=== PATIENT | male | born 1980 | race Caucasian/White ===

== ENCOUNTER 2017-01-31 16:55 | Emergency (ER) | payer OTHER ==
[2017-01-31 17:08] VITALS: BP 124/91; PULSE 91; TEMP 97.6; BMI 23.0
[2017-01-31] MEDS ORDERED: BACITRACIN 30 GM TUBE TOPICAL OINTMENT ONE (17:50)
[2017-01-31] MEDS ORDERED: DIPHTH,PERTUSS(ACELL),TET 0.5 ML DISP.SYRIN IM ONE (17:55)
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
== END 2017-01-31 18:22 | disposition home or self-care (01) ==
LOC: JERFT 16:55
PROC: 3E0234Z Introduction of Serum, Toxoid and Vaccine into Muscle, Percutaneous Approach (ICD-10-PCS; principal; 2017-01-31)
DX: S40.812A Abrasion of left upper arm, initial encounter (principal); T14.8 Other injury of unspecified body region; X58.XXXA Exposure to other specified factors, initial encounter; Y93.9 Activity, unspecified; Y92.9 Unspecified place or not applicable; Y99.0 Civilian activity done for income or pay
CPT/HCPCS: 90715; 99281-25

== ENCOUNTER 2017-07-09 17:11 | Emergency (ER) | payer OTHER ==
[2017-07-09 17:26] VITALS: BP 134/74; PULSE 91; TEMP 98.3; BMI 23.7
--- NOTE | 2017-07-09 18:21 | PDOC ---
History of Present Illness - General Chief Complaint: Non EmpBld/Body Flud Exposure Stated Complaint: EXPOSE TO BLOOD Time Seen by Provider: 07/09/17 18:20 Past History - Past Medical History Allergies/Adverse Reactions: Allergies Allergy/AdvReac Type Severity Reaction Status Date / Time No Known Allergies Allergy Verified 07/09/17 17:23 Home Medications: Ambulatory Orders No Home Medications 0 dose .ROUTE UTDICT 05/15/13 Anemia: No Asthma: No Cancer: No Cardiac Disorders: No Other medical history: DENIES. - Surgical History Abdominal Surgery: No Appendectomy: No Cardiac Surgery: No Cholecystectomy: No - Immunization History Td Vaccination: (tetanus up to date) Immunization Up to Date: Yes - Psycho/Social/Smoking Cessation Hx Anxiety: No Suicidal Ideation: No Smoking Status: No Smoking History: Never smoked Years of Tobacco Use: 0 Have you smoked in the past 12 months: No Number of Cigarettes Smoked Daily: 0 Cigars Per Day: 0 Hx Alcohol Use: No Drug/Substance Use Hx: No Substance Use Type: None *Physical Exam - Vital Signs Last Vital Signs Temp Pulse Resp BP Pulse Ox 98.3 F 91 H 17 134/74 95 07/09/17 17:23 07/09/17 17:23 07/09/17 17:23 07/09/17 17:23 07/09/17 17:23 ED Treatment Course - LABORATORY CBC & Chemistry Diagram: 07/09/17 19:00 07/09/17 19:00 *DC/Admit/Observation/Transfer Diagnosis at time of Disposition: Exposure to blood or body fluid - Discharge Dispostion Disposition: HOME Condition at time of disposition: Good Admit: No - Referrals Referrals: Jamie Carr NP [Nurse Practitioner] - - Patient Instructions Printed Discharge Instructions: How to Handle Body Fluid Exposure -- Non- Healthcare Worker (At Home, [facility] Additional Instructions: Your testing today was negative. You need to call back for your testing for hepatitis as this test is a send out. We should have results in 2-3 days. You need to follow up with your primary care doctor Monday for follow up exposure testing. If you do not have a primary care doctor you can follow up with the provider listed on this page. Your lab work shows that you are dehydrated. Drink plenty of fluids. Return to the ED if you have fevers, chills, nausea, vomiting, pain to the hand or any changes in your symptoms. - Post Discharge Activity Work/School Note: Back to Work
[2017-07-09 19:12] LABS: BASOPHIL 0.3 % (0-2.0); EOSINOPHIL 1.2 % (0-4.5); MCH 30.6 pg (25.7-33.7); MCHC 34.3 g/dl (32.0-35.9); MEAN CELL VOLUME 89.2 fl (80-96); MEAN PLT VOLUME 8.9 fl (7.5-11.1); NEUTROPHILS 73.9 % (42.8-82.8); PLATELET COUNT 184 K/MM3 (134-434); RDW 12.7 % (11.9-15.9); WHITE BLOOD COUNT 7.2 K/mm3 (4.0-10.0)
[2017-07-09 19:37] LABS: ALBUMIN 4.5 g/dl (3.4-5.0); ALK PHOS 80 U/L (45-117); ANION GAP 8 (8-16); BILIRUBIN,TOTAL 0.6 mg/dL (0.2-1.0); CALCIUM 9.3 mg/dL (8.5-10.1); CO2 30 mmol/L (21-32); CREATININE 1.6 mg/dL (0.7-1.3); GLUCOSE,RANDOM 94 mg/dL (74-106); SGOT/AST 19 U/L (15-37); SGPT/ALT 48 U/L (12-78); TOT PROT 7.7 g/dl (6.4-8.2)
[2017-07-09 19:50] LABS: HIV 1 & 2 AB NEGATIVE; HIV 1 AGp24 NEGATIVE
== END 2017-07-09 20:32 | disposition home or self-care (01) ==
LOC: JERFT 17:11
DX: Z77.21 Contact with and (suspected) exposure to potentially hazardous body fluids (principal); Y35.891A Legal intervention involving other specified means, law enforcement official injured, initial encounter; Y93.89 Activity, other specified; Y92.89 Other specified places as the place of occurrence of the external cause; Y99.0 Civilian activity done for income or pay
CPT/HCPCS: 36415; 80053; 85025; 86704; 86706; 86803; 87340; 87389; 99281-25

== ENCOUNTER 2017-07-31 21:18 | Emergency (ER) | payer OTHER ==
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
[2017-07-31 21:59] VITALS: BMI 23.0
[2017-07-31 22:58] VITALS: BP 146/89; PULSE 90
== END 2017-07-31 23:04 | disposition home or self-care (01) ==
LOC: JER 21:18
DX: S80.211A Abrasion, right knee, initial encounter (principal); Y35.891A Legal intervention involving other specified means, law enforcement official injured, initial encounter; X58.XXXA Exposure to other specified factors, initial encounter; Y93.89 Activity, other specified; Y92.410 Unspecified street and highway as the place of occurrence of the external cause
CPT/HCPCS: 99281-25

== ENCOUNTER 2018-05-24 16:57 | Emergency (ER) | payer OTHER ==
[2018-05-24 17:39] VITALS: PULSE 77; TEMP 98.3; BMI 23.0
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
[2018-05-24 17:59] VITALS: BP 147/80
== END 2018-05-24 18:05 | disposition home or self-care (01) ==
LOC: JER 16:57
DX: Z20.1 Contact with and (suspected) exposure to tuberculosis (principal); Y35.891A Legal intervention involving other specified means, law enforcement official injured, initial encounter; Y93.89 Activity, other specified; Y92.098 Other place in other non-institutional residence as the place of occurrence of the external cause; Y99.0 Civilian activity done for income or pay
CPT/HCPCS: 71046-TC-FY; 99281-25

== ENCOUNTER 2019-02-09 23:15 | Emergency (ER) | payer OTHER ==
[2019-02-09 23:21] VITALS: BP 131/80; PULSE 82; TEMP 98; BMI 23.0
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
== END 2019-02-09 23:54 | disposition home or self-care (01) ==
LOC: JER 23:15
DX: Z77.21 Contact with and (suspected) exposure to potentially hazardous body fluids (principal); M79.645 Pain in left finger(s); Y35.891A Legal intervention involving other specified means, law enforcement official injured, initial encounter; Y93.89 Activity, other specified; Y92.89 Other specified places as the place of occurrence of the external cause; Y99.0 Civilian activity done for income or pay
CPT/HCPCS: 99281-25

== ENCOUNTER 2019-03-18 20:13 | Emergency (ER) | payer OTHER ==
[2019-03-18 20:18] VITALS: BP 150/88; PULSE 85; TEMP 98; BMI 23.0
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
--- NOTE | 2019-03-18 20:34 | PDOC ---
History of Present Illness - General Chief Complaint: Pain, Acute Stated Complaint: RT. SHOULDER PAIN [employer] Time Seen by Provider: 03/18/19 20:16 - History of Present Illness Initial Comments: 03/18/19 20:32 38-year-old male without comorbidities presents for evaluation of right shoulder pain after he stumbled into the car door earlier today while at work. Past History - Past Medical History Allergies/Adverse Reactions: Allergies Allergy/AdvReac Type Severity Reaction Status Date / Time No Known Allergies Allergy Verified 03/18/19 20:18 Home Medications: Ambulatory Orders NK [No Known Home Medication] 03/18/19 Anemia: No Asthma: No Cancer: No Cardiac Disorders: No COPD: No - Surgical History Abdominal Surgery: No Appendectomy: No Cardiac Surgery: No Cholecystectomy: No - Immunization History Td Vaccination: (tetanus up to date) Immunization Up to Date: Yes - Suicide/Smoking/Psychosocial Hx Smoking Status: No Smoking History: Unknown if ever smoked Years of Tobacco Use: 0 Have you smoked in the past 12 months: No Number of Cigarettes Smoked Daily: 0 Cigars Per Day: 0 Information on smoking cessation initiated: No Hx Alcohol Use: No Drug/Substance Use Hx: No Substance Use Type: None Review of Systems - Review of Systems Musculoskeletal: Yes: Joint Pain *Physical Exam - Vital Signs Last Vital Signs Temp Pulse Resp BP Pulse Ox 98.0 F 85 16 150/88 100 03/18/19 20:17 03/18/19 20:17 03/18/19 20:17 03/18/19 20:17 03/18/19 20:17 - Physical Exam Comments: 03/18/19 20:32 Right shoulder skin color and temperature are normal range of motion is full and nonpainful. 5 out of 5 strength in internal and external rotation as well as supraspinous isolation negative impingement maneuvers. No indication of instability or gross sensorimotor deficits. Medical Decision Making - Medical Decision Making 03/18/19 20:31 This is a benign shoulder exam from a contusion which occurred earlier today at work. No emergent intervention is needed. *DC/Admit/Observation/Transfer Diagnosis at time of Disposition: Contusion of right shoulder Shoulder injury Qualifiers: Encounter type: initial encounter Laterality: right Qualified Code(s): S49.91XA - Unspecified injury of right shoulder and upper arm, initial encounter - Discharge Dispostion Disposition: HOME Condition at time of disposition: Stable Decision to Admit order: No - Referrals Referrals: Faheem Mills DO [Staff Physician] - - Patient Instructions Printed Discharge Instructions: Contusion Additional Instructions: Follow-up with orthopedic surgery in 1-2 days should you require further evaluation and treatment. Tylenol and Motrin as directed for pain. Return to the emergency room should symptoms worsen or go unresolved. - Post Discharge Activity
== END 2019-03-18 20:45 | disposition home or self-care (01) ==
LOC: JERFT 20:13
DX: S40.011A Contusion of right shoulder, initial encounter (principal); S49.91XA Unspecified injury of right shoulder and upper arm, initial encounter; W18.09XA Striking against other object with subsequent fall, initial encounter; Y93.89 Activity, other specified; Y92.89 Other specified places as the place of occurrence of the external cause
CPT/HCPCS: 99281-25

== ENCOUNTER 2019-04-12 22:02 | Emergency (ER) | payer OTHER | END 2019-04-12 22:17 | disposition home or self-care (01) | LOC: JER 22:02 → JERFT 22:17 ==

== ENCOUNTER 2020-07-23 00:04 | Emergency (ER) | payer OTHER ==
[2020-07-23 00:10] VITALS: BP 130/93; PULSE 88; TEMP 97.8; BMI 23.0
--- NOTE | 2020-07-23 00:27 | PDOC ---
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 Patient describes scraping the PIP joint dorsal surface against the handcuffs and hyperextending the finger at the MCP joint. Since the injury, he has had some intermittent oozing from the laceration at the PIP joint and soreness with movement of the finger at the MCP joint. Patient is right-hand dominant; no previous injury to the left third finger. No other injury sustained. Patient is up-to-date on his tetanus immunizations No daily medications No known allergies Non-smoker; no daily alcohol or other recreational drug use Past History - Medical History Allergies/Adverse Reactions: Allergies Allergy/AdvReac Type Severity Reaction Status Date / Time No Known Allergies Allergy Verified 07/23/20 00:06 Home Medications: Ambulatory Orders NK [No Known Home Medication] 03/18/19 Anemia: No Asthma: No Cancer: No Cardiac Disorders: No COPD: No - Surgical History Abdominal Surgery: No Appendectomy: No Cardiac Surgery: No Cholecystectomy: No - Immunization History Td Vaccination: Yes (tetanus up to date) Immunization Up to Date: Yes - Psycho-Social/Smoking History Smoking Status: No Smoking History: Never smoked Years of Tobacco Use: 0 Have you smoked in the past 12 months: No Number of Cigarettes Smoked Daily: 0 Cigars Per Day: 0 Information on smoking cessation initiated: No - Substance Abuse Hx (Audit-C & DAST Scrn) How often the patient has a drink containing alcohol: Never Score: In Men: 4 or > Positive; In Women: 3 or > Positive: 0 Screen Result (Pos requires Nsg. Audit-10AR): Negative In the last yr the pt used illegal drug/Rx for NonMed reason: No Score: Yes response is considered Positive: 0 Screen Result (Positive result requires Nsg. DAST-10): Negative Review of Systems - Review of Systems Able to Perform ROS?: Yes Comments:: 12 point review of systems is negative except for what is noted in the history of present illness *Physical Exam - Vital Signs Last Vital Signs Temp Pulse Resp BP Pulse Ox 97.8 F 88 16 130/93 98 07/23/20 00:07 07/23/20 00:07 07/23/20 00:07 07/23/20 00:07 07/23/20 00:07 - Physical Exam GENERAL: Adult male, alert and oriented x3, no acute distress HEAD: Normal with no signs of trauma. EYES: PERRLA, EOMI, sclera anicteric, conjunctiva clear. EXTREMITIES: Left handthird finger: Mild oozing from 0.5 cm curvilinear flap type laceration dorsal surface PIP joint; no edema, tenderness or deformity Mild tenderness, mild pain, mild edema on flexion and extension at MCP joint; no ecchymosis or deformity NEUROLOGICAL: Cranial nerves II through XII grossly intact. Normal speech. No focal neurological deficits. 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 Exam as noted a teresa. X-ray of left third finger planned to rule out bony injury but patient refused stating that he will see his orthopedist if he has persistent pain or increased swelling/ecchymosis of the area. Suturing of small flap type laceration of the dorsal surface of the PIP joint of the third finger was planned because of the location of the injury (repeated flexion at the joint will delay healing of the wound unless wound surfaces are closed). Patient requested that suture repair be deferred. Since the flap is quite superficial and the wound is small, if the flap avulses, there would be only a small area of exposed subcutaneous tissue. Patient has been advised to keep the wound closed with protective covering while working over the next few days and otherwise open to air. Band-Aid/bacitracin of ointment applied to the wound. Discharge - Discharge Information Problems reviewed: Yes Clinical Impression/Diagnosis: Superficial laceration of left hand Qualifiers: Encounter type: initial encounter Qualified Code(s): S61.412A - Laceration without foreign body of left hand, initial encounter Sprain of finger, left Qualifiers: Encounter type: initial encounter Finger: middle finger Sprain of finger site: metacarpophalangeal joint Qualified Code(s): S63.653A - Sprain of metacarpophalangeal joint of left middle finger, initial encounter Condition: Stable Disposition: HOME - Follow up/Referral - Patient Discharge Instructions Patient Printed Discharge Instructions: DI for Minor Laceration Additional Instructions: Cover laceration while working for the next 3 to 4 days Leave wound open to air when not working Return to ER if you develop pain/swelling/redness around wound Follow-up with your orthopedist if you have persistent pain or develop swelling/bruising of the knuckle - Post Discharge Activity
== END 2020-07-23 00:53 | disposition home or self-care (01) ==
LOC: FER 00:04
DX: S61.412A Laceration without foreign body of left hand, initial encounter (principal); S63.653A Sprain of metacarpophalangeal joint of left middle finger, initial encounter
CPT/HCPCS: 99283-25

== ENCOUNTER 2021-06-21 19:49 | Emergency (ER) | payer BC, OTHER ==
[2021-06-21 20:07] VITALS: BP 132/82; PULSE 79; TEMP 97.8; BMI 23.0
== END 2021-06-21 20:55 | disposition home or self-care (01) ==
LOC: FER 19:49
DX: S61.011A Laceration without foreign body of right thumb without damage to nail, initial encounter (principal); W26.0XXA Contact with knife, initial encounter; Y92.000 Kitchen of unspecified non-institutional (private) residence as the place of occurrence of the external cause
CPT/HCPCS: 99282-25

== ENCOUNTER 2021-09-21 20:22 | Emergency (ER) | payer OTHER, BC ==
[2021-09-21 20:46] VITALS: BP 138/81; PULSE 81; TEMP 98.3; BMI 23.7
== END 2021-09-21 20:48 | disposition home or self-care (01) ==
LOC: FER 20:22
DX: Z77.21 Contact with and (suspected) exposure to potentially hazardous body fluids (principal)
CPT/HCPCS: 99283-25

== ENCOUNTER 2022-01-10 17:30 | Emergency (ER) | payer OTHER ==
[2022-01-10 18:13] VITALS: BP 147/84; PULSE 92; TEMP 98.3; BMI 23.9
[2022-01-10] MEDS ORDERED: IBUPROFEN 600 MG TABLET (FP) PO ONE ×2 (18:24→18:29)
== END 2022-01-10 19:19 | disposition home or self-care (01) ==
LOC: FER 17:30
DX: R07.9 Chest pain, unspecified (principal); M25.511 Pain in right shoulder; W01.0XXA Fall on same level from slipping, tripping and stumbling without subsequent striking against object, initial encounter
CPT/HCPCS: 71046-TC-FY; 71101-TC-LT-FY; 73030-TC-RT-FY; 99285-25

== ENCOUNTER 2022-10-26 23:30 | Emergency (ER) | payer OTHER ==
[2022-10-26 23:51] VITALS: BP 145/96; PULSE 97; RESP 16; TEMP 98.1; BMI 23.9
[2022-10-26] MEDS ORDERED: IBUPROFEN 600 MG TABLET (FP) PO ONE ×2 (23:54→23:57)
== END 2022-10-27 00:09 | disposition home or self-care (01) ==
LOC: FER 23:30
DX: S86.911A Strain of unspecified muscle(s) and tendon(s) at lower leg level, right leg, initial encounter (principal); Y99.8 Other external cause status
CPT/HCPCS: 99283-25

== ENCOUNTER 2023-02-20 23:51 | Emergency (ER) | payer OTHER ==
[2023-02-20 23:58] VITALS: BP 130/87; PULSE 90; RESP 18; TEMP 98; BMI 23.0
== END 2023-02-21 00:24 | disposition home or self-care (01) ==
LOC: FER 23:51
DX: S60.940A Unspecified superficial injury of right index finger, initial encounter (principal); S60.942A Unspecified superficial injury of right middle finger, initial encounter; M79.644 Pain in right finger(s); W26.8XXA Contact with other sharp object(s), not elsewhere classified, initial encounter; Y99.0 Civilian activity done for income or pay; Z77.21 Contact with and (suspected) exposure to potentially hazardous body fluids
CPT/HCPCS: 99282-25

== ENCOUNTER 2023-03-11 23:56 | Emergency (ER) | payer OTHER ==
[2023-03-12 00:09] VITALS: BP 133/96; PULSE 67; RESP 16; TEMP 98; BMI 25.0
[2023-03-12] MEDS ORDERED: IBUPROFEN 600 MG TABLET (FP) PO ONE ×2 (01:47→01:49)
== END 2023-03-12 01:57 | disposition home or self-care (01) ==
LOC: FER 23:56
DX: M25.522 Pain in left elbow (principal); S50.02XA Contusion of left elbow, initial encounter; W23.1XXA Caught, crushed, jammed, or pinched between stationary objects, initial encounter
CPT/HCPCS: 73070-TC-LT-FY; 99283-25